=== PATIENT | male | born 1960 | race Caucasian/White ===

== ENCOUNTER 2016-12-19 17:17 | Emergency (ER) | payer BC ==
[2016-12-19 17:16] LABS: BASOPHILS 0 %; EOSINOPHILS 1.4 %; EOSINOPHILS ABSOLUTE 0.03 10/3/uL (0.0-0.53); HEMOGLOBIN 9.9 g/dL (13.6-17.8); LYMPHOCYTES 22.6 %; LYMPHOCYTES ABSOLUTE 0.48 10/3/uL (0.67-4.30); MEAN CORPUSCULAR HEMOGLOB 30.7 pg (26.0-34.0); MEAN PLATELET VOLUME 8.7 fL (9.2-13.0); MONOCYTES ABSOLUTE 0.19 10/3/uL (0.21-1.20); NEUTROPHILS ABSOLUTE 1.42 10/3/uL (2.02-8.40); RED CELL COUNT 3.23 10/6/uL (4.7-6.1)
[~2016-12-19 17:17] MED LIST: AMB10 PO; ASAB PO; COREG6 PO; FLEX PO; FOLIC PO; JANTOVEN5 MG PO; LYRICA75 PO; MTX2.5 PO; NORCO1 TAB PO; ORENCIA250 MG SC; P5 PO; PLAQ200B PO; PRAVACHOL40 MG PO; VICODINTAB PO; WELLXL300 PO
[2016-12-19 17:18] LABS: ER CBC TAT 0 Hrs 10 Mins; HEMATOCRIT 28.5 % (40.0-51.0); MEAN CORPUS HGB CONC 34.7 g/dL (32.0-36.0); MEAN CORPUSCULAR VOLUME 88.2 fL (80-100); PLATELET COUNT 85 10/3/uL (150-400); RBC DISTRIBUTION WIDTH 23.7 % (12.0-16.0); WHITE BLOOD CELLS 2.1 10/3/uL (4.5-10.5)
[2016-12-19 17:20] LABS: MANUAL DIFF NO %
[2016-12-19 17:30] LABS: PARTIAL THROMBO TIME 27.5 SEC (22.5-37.2); PROTIME (NOT ORD) 13.3 SEC (12.0-14.5)
[2016-12-19 17:34] LABS: BUN (BLOOD UREA NITROGEN) 24 MG/DL (6-23); CHEST PAIN PROFILE TAT 0 Hrs 26 Mins; CHLORIDE, SERUM 106 MMOL/L (96-112); CO2 (CARBON DIOXIDE) 28 MMOL/L (24-34); CREATININE 1.57 MG/DL (0.70-1.30); GFR AFRICAN AMERICAN 57 ML/MIN (>=60); GFR NON AFRICAN AMERICAN 49 ML/MIN (>=60); GLUCOSE, SERUM 102 MG/DL (60-99); SODIUM, SERUM 140 MMOL/L (135-148); TROPONIN I <0.02 NG/ML (<0.05)
[2016-12-19 17:35] LABS: POTASSIUM, SERUM 3.9 MMOL/L (3.5-5.3)
[2016-12-19 17:49] LABS: PLATELET ESTIMATE DEC (ADEQUATE)
[2017-03-03] MEDS ORDERED: FLUCON2 PO (15:08)
[2017-03-03] MEDS ORDERED: CENTRUM PO (15:12)
[2017-03-03] MEDS ORDERED: LIPITOR40 PO (15:12)
[2017-03-03] MEDS ORDERED: DOCUSATE PO (15:14)
[2017-03-03] MEDS ORDERED: DURA25 TOP (15:14)
[2017-03-03] MEDS ORDERED: LEVAQUIN750 MG PO (15:16)
[2017-03-03] MEDS ORDERED: FERROUS SULF325 M1 PO (15:16)
[2017-03-03] MEDS ORDERED: LIDOCAINE 2% (15:17)
[2017-03-03] MEDS ORDERED: LOM PO (15:18)
[2017-03-03] MEDS ORDERED: PRIN10 PO (15:18)
[2017-03-03] MEDS ORDERED: [UNRECOGNIZED DRUG - OTHER] (15:19)
[2017-03-03] MEDS ORDERED: NYSTATIN (15:19)
[2017-03-03] MEDS ORDERED: MIRALAX POWDER1 PKT PO (15:20)
[2017-03-03] MEDS ORDERED: PRILO PO (15:21)
[2017-03-03] MEDS ORDERED: OXYCONTIN30 MG PO (15:22)
[2017-03-03] MEDS ORDERED: PLAQ200B PO (15:23)
[2017-03-03] MEDS ORDERED: COMP10B PO (15:24)
[2017-03-03] MEDS ORDERED: TOPXL25 PO (15:25)
[2017-03-03] MEDS ORDERED: ZOFRAN8 PO (15:26)
[2017-03-03] MEDS ORDERED: WELLSR150 PO (15:26)
== END 2016-12-19 20:57 | disposition home or self-care (01) ==
LOC: ER 17:17
PROVIDERS: Emergency Medicine
DX: R07.89 Other chest pain (principal); I25.2 Old myocardial infarction; K21.9 Gastro-esophageal reflux disease without esophagitis; Z95.1 Presence of aortocoronary bypass graft; Z88.0 Allergy status to penicillin; Z88.8 Allergy status to other drugs, medicaments and biological substances; Z79.82 Long term (current) use of aspirin; Z79.899 Other long term (current) drug therapy
CPT/HCPCS: 71010; 71275; 80048; 83735; 84484; 85025; 85610; 85730; 93005; 99285; Q9967